=== PATIENT | female | born 1955 | race African-American/Black ===

== ENCOUNTER 2022-02-11 16:03 | Outpatient (CLI) | payer MEDICARE, BC | END 2022-02-11 23:59 | disposition home or self-care (01) | LOC: LAB 16:03 | PROVIDERS: ATTEND Internal Medicine Cardiovascular Disease | DX: I10 Essential (primary) hypertension (principal); R53.83 Other fatigue; R06.02 Shortness of breath; R07.9 Chest pain, unspecified | CPT/HCPCS: 36415; 84484 ==

== ENCOUNTER 2023-01-25 15:35 | Outpatient (CLI) | payer MEDICARE, BC ==
[2023-01-25 16:24] LABS: BASOPHILS % (AUTO) 0.7 % (0-1); EOSINOPHILS # (AUTO) 0.2 X10'3 (0-0.9); EOSINOPHILS % (AUTO) 2.2 % (0-6); HEMATOCRIT 43.5 % (35.0-45.0); HEMOGLOBIN 14.5 g/dl (12.0-16.0); LYMPHOCYTES # (AUTO) 1.4 X10'3 (1.1-4.8); LYMPHOCYTES % (AUTO) 18.5 % (21-51); MEAN CORPUSCULAR HGB CONC 33.3 g/dL (33.0-36.5); MEAN CORPUSCULAR VOLUME 96.2 FL (78-98); MEAN PLATELET VOLUME 8.7 FL (7.4-10.4); MONOCYTES # (AUTO) 0.6 X10'3 (0-0.9); MONOCYTES % (AUTO) 7.9 % (2-12); NEUTROPHILS # (AUTO) 5.3 X10'3 (1.8-7.7); NEUTROPHILS % (AUTO) 70.7 % (42-75); PLATELET COUNT 240 X10'3 (140-440); RED BLOOD COUNT 4.52 X10'6 (4.20-5.60); RED CELL DISTRIBUTION WIDTH 13.7 % (11.5-14.5); WHITE BLOOD COUNT 7.5 X10'3 (4.5-11.0)
[2023-01-25 16:37] LABS: % IRON SATURATION 24 % (11-46); IRON 81 UG/DL (49-151); TOTAL IRON BINDING CAPACITY 336 UG/DL (259-388)
[2023-01-25 16:45] LABS: HEMOGLOBIN A1C 5.5 % (4.5-6.2)
[2023-01-25 17:04] LABS: ALANINE AMINOTRANSFERASE 81 U/L (12-78); ALBUMIN 4.4 G/DL (3.4-5.0); ALBUMIN/GLOBULIN RATIO 1.3 (1.1-1.5); ALKALINE PHOSPHATASE 118 IU/L (46-116); ANION GAP 9 (8-16); ASPARTATE AMINO TRANSFERASE 56 U/L (10-37); BILIRUBIN,TOTAL 0.8 MG/DL (0.1-1.0); BLOOD UREA NITROGEN 12 MG/DL (7-18); CALCIUM 9.8 MG/DL (8.5-10.1); CHLORIDE 108 MMOL/L (99-107); CHOL/HDL RATIO 2.6 (0.00-4.99); CHOLESTEROL 244 MG/DL (0-200); FERRITIN 67 NG/ML (8-252); GLUCOSE 84 MG/DL (70-104); HDL CHOLESTEROL 94 MG/DL (35-60); LDL CHOLESTEROL 119 MG/DL (50-100); POTASSIUM 3.5 MMOL/L (3.5-5.1); SODIUM 144 MMOL/L (135-145); TOTAL CARBON DIOXIDE 27.2 MMOL/L (24-32); TOTAL PROTEIN 7.7 G/DL (6.4-8.2); TRIGLYCERIDES 55 MG/DL (20-135); eGFR 86 ML/MIN
== END 2023-01-25 23:59 | disposition home or self-care (01) ==
LOC: RAD 15:35
PROVIDERS: ATTEND Surgery
DX: Z13.89 Encounter for screening for other disorder (principal); R53.83 Other fatigue
CPT/HCPCS: 36415; 80053; 80061; 82306; 82607; 82728; 82746; 83036; 83540; 83550; 84439; 84443; 85025